=== PATIENT | female | born 1940 | race Caucasian/White ===

== ENCOUNTER 2023-02-12 08:31 | Outpatient (CLI) | payer MEDICARE, BC, SELFPAY ==
--- NOTE | ~2023-02-12 | XR_ITS ---
SMALL BOWEL SERIES ONLY INDICATION: Abdomen pain TECHNIQUE: Serial plain films and fluoroscopic spot films are performed following oral demonstration of thin barium. COMPARISON: No prior studies for comparison. FINDINGS: Barium was followed sequentially through the small bowel. There is a large hiatal hernia wi th gastric volvulus. The mucosal pattern is unremarkable. No evidence for stricture, polyp, divertic dain or obstruction of flow of contrast. Transit time is normal. IMPRESSION: 1: Normal small bowel series. 2: Large hiatal hernia with gastric volvulus. Reviewed, dictated and finalized at location A.
== END 2023-02-12 08:32 | disposition home or self-care (01) ==
PROVIDERS: Visit Provider Nurse Practitioner
DX: R93.89 Abnormal findings on diagnostic imaging of other specified body structures (principal); K52.9 Noninfective gastroenteritis and colitis, unspecified; K44.9 Diaphragmatic hernia without obstruction or gangrene
CPT/HCPCS: 74250